=== PATIENT | female | born 1970 | race Caucasian/White ===

== ENCOUNTER 2024-01-20 06:19 | Emergency (ER) | payer SELFPAY ==
[2024-01-20 06:22] VITALS: BP 138/79; PULSE 70; RESP 16; TEMP 36.7; O2SAT 100; BMI 32.0
--- NOTE | 2024-01-20 06:25 | CT_ITS ---
STUDY: CT ABDOMEN AND PELVIS WITH CONTRAST - URINARY TRACT REASON FOR EXAM: Female, 54 years old. Epigastric pain RADIATION DOSAGE (If Supplied By Facility): CTDIvol = ( 15.64 ) mGy, DLP = ( 860.68 ) mGycm TECHNIQUE: IV 100mL Isovue-370 was administered. Transaxial images were obtained from the dome of the diaphragm to the symphysis pubis subsequent to intravenous contrast administration. Multiplanar coronal and sagittal images were reformatted. The protocol utilizes one or more of the following dose reduction techniques: automated exposure control, adjustment of mA and/or kV according to patient size,and/or use of iterative reconstruction technique. COMPARISON: No relevant prior comparison study available FINDINGS: The visualized lung bases are unremarkable. The visualized portions of the heart are within normal limits. Normal liver. There is non-visualization of the gallbladder, which may be secondary to either contraction or a prior cholecystectomy. Normal spleen. Normal pancreas. Normal bilateral adrenal glands. Normal visualized stomach. Normal small intestine. Normal colon. The appendix is visualized and appears normal. There is diffuse atherosclerotic calcification of the abdominal aorta, without a demonstrated aneurysm. No retroperitoneal adenopathy. Normal right kidney. 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 Normal urinary bladder. Normal abdominal wall. There are diffuse degenerative changes of the visualized thoracic and lumbar spine. CT/Abdomen/Pelvis W IV Cont ONLY IMPRESSION: No acute intra-abdominal process. Atherosclerosis. Degenerative changes of the visualized thoracic and lumbar spine. Electronically Signed: Ally Lynch MD at 8:05 EDT ,
--- NOTE | 2024-01-20 06:26 | EDS_ITS ---
HPI HPI - GI History of Present Illness Chief Complaint: Abd Pain Informant: patient and EMS Narrative Narrative: 54-year-old female states she was at work this morning and suddenly started having severe epigastric pain nausea. No syncope or chest discomfort, does not radiate or migrate, no pain in her back. Does not recall having had this before. Has a cardiac stent but felt much different than this. She has had prior cholecystectomy earlier this year due to stones. She drinks alcohol occasionally, she had some beer yesterday but did not overindulge. Normal bowel movement the last 1 was yesterday, normal urination. PFSH [facility] Medical History (Updated 01/20/24 @ 07:[address] Margarito Ledbetter MD) Heart attack Home Medications ?Medication ?Instructions ?Recorded ?Last Taken ?Type pantoprazole 40 mg tablet,delayed 40 mg PO DAILY #14 tabs 01/20/24 Unknown Rx release Allergy/AdvReac Type Severity Reaction Status Date / Time acetaminophen (From Percocet) Allergy Mild Shortness Verified 01/20/24 06:22 of breath hydromorphone (From Dilaudid) Allergy Mild Shortness Verified 01/20/24 06:22 of breath morphine Allergy Mild Shortness Verified 01/20/24 06:22 of breath oxycodone (From Percocet) Allergy Mild Shortness Verified 01/20/24 06:22 of breath shellfish derived Allergy Mild PT UNSURE Verified 01/20/24 06:44 OF REACTION Family History no significant family his Surgical History (Updated 01/20/24 @ 06:26 by Deangelo Linares) Hx of cholecystectomy Total knee replacement status ROS ROS ED Constitutional Constitutional ED: Denies chills or fever(s) Eyes Eyes: Denies change in vision or diplopia ENT ENT ED: Denies rhinorrhea or sore throat Cardiovascular Cardiovascular: Denies chest pain or palpitations Respiratory/Chest Respiratory/Chest: Denies cough or dyspnea Gastrointestinal Gastrointestinal: Reports abdominal pain and nausea; Denies diarrhea or vomiting Genitourinary Genitourinary ED: Denies dysuria or hematuria Musculoskeletal Musculoskeletal: Denies back pain or neck pain Integumentary Denies abscess or rash Neurologic Neurologic: Denies headache(s), paresthesias or weakness Psychiatric Psychiatric: Denies suicidal thoughts EXAM Physical Exam Const Vital Signs: 01/20/24 06:22 Temperature 98.0 F Temperature Source Oral Pulse Rate 70 Respiratory Rate 16 Blood Pressure 138/79 H Blood Pressure Mean 98 Pulse Ox 100 Oxygen Delivery Method Room Air Positive well nourished and well developed General Appearance ED: well developed and NAD HEENT Reports moist mucous membranes normocephalic and atraumatic Eyes PERRL and EOMs intact bilaterally Neck full ROM and supple Resp normal respiratory effort and clear to auscultation bilaterally Cardio regular rate, regular rhythm and no murmurs GI non-distended GI Narrative: Moderate-severe tenderness epigastrium, no other areas of abdominal tenderness. Some mild voluntary guarding, no rebound tenderness. No pulsatile mass palpab le. Normal inspection no Denzel sign. Auscultation: normoactive bowel sounds Palpation: soft Back/Spine no CVA tenderness General Back: other FROM Extremity normal to inspection Extremity Narrative: Equal 2+/4 dorsalis pedis and radial pulses. General Extremety ED: Negative for edema, pulses abnormal or tenderness General Extremity: Negative for edema or pulses abnormal Neuro oriented x3, CN's II-XII intact bilaterally and no sensory deficits noted Sensorium / Orientation: awake and alert Motor Exam: strength 5/5 throughout Psych thought process normal Skin no rashes or lesions noted and no wounds MDM MDM MDM Narrative Medical decision making narrative: Patient appears nontoxic but is if she is in pain. Her vital signs are normal. Differential includes dyspepsia, pancreatitis, biliary obstruction, AAA, peptic ulcer disease, perforated viscus, bowel obstruction. Labs and CT ordered, patient has declared allergy to morphine and Dilaudid so she will be given fentanyl for pain in addition to Zofran for nausea. Patient refused the fentanyl and asked for Toradol instead which will was given. In the meantime, labs were obtained and they were all within normal limits, as well as a CT with IV contrast. I reviewed the images and report which I agree with, which shows no AAA, radiographic signs of cholecystitis, free air or perforated viscus or obstruction; the CT is read as normal. After the Toradol, she states she is not sure if it helped or not, it is overall better but waxing and waning/coming and going. Therefore we tried a GI cocktail and a dose of oral pantoprazole. Just after getting that she is a little better. She is comfortable with going home as SD, she given a prescription for 2-week course of pantoprazole and advised to follow-up. Lab Data Attestation: I reviewed the patient's lab results. Labs: Laboratory Results - last 24 hr 01/20/24 06:36 WBC 10.3 RBC 4.72 Hgb 13.6 Hct 42.3 MCV 89.6 MCH 28.8 MCHC 32.2 RDW Std Deviation 41.6 RDW Coeff of [place] 12.6 Plt Count 223 MPV 10.6 Immature Gran % (Auto) 0.400 Neut % (Auto) 69.0 Lymph % (Auto) 21.0 Edgar % (Auto) 6.5 Eos % (Auto) 2.4 Baso % (Auto) 0.7 Absolute Neuts (auto) 7.1 Absolute Lymphs (auto) 2.16 Nucleated RBC % 0 Sodium 141 Potassium 4.3 Chloride 110 H Carbon Dioxide 26.0 Anion Gap 5 BUN 11 Creatinine 1.11 H Estim Creat Clear Calc 60.97 Est GFR (MDRD) Af Amer 66 Est GFR (MDRD) Non-Af 54 L BUN/Creatinine Ratio 9.9 L Glucose 93 Calcium 9.4 Total Bilirubin 0.60 AST 29 ALT 23 Alkaline Phosphatase 113 Total Protein 7.3 Albumin 3.6 Globulin 3.7 Albumin/Globulin Ratio 1.0 Lipase 22 Urine Color Yellow Urine Clarity Cloudy Urine pH 5.0 Ur Specific [place] 1.020 Urine Protein 15 H Urine Glucose (UA) Normal Urine Ketones Negative Urine Occult Blood 50 H Urine Nitrite Negative Urine Bilirubin Negative Urine Urobilinogen Normal Ur Leukocyte Esterase Negative Urine RBC 0-5 SEEN Urine WBC 0 SEEN Ur Squamous Epith Cells 25-50 SEEN Urine Bacteria 3+ Urine Mucus 0 SEEN Radiography Diagnostic Testing: Clinical Impression(s) from Imaging Studies Abdomen/Pelvis CT 01/20/24 06:25 IMPRESSION: No acute intra-abdominal process. Atherosclerosis. Degenerative changes of the visualized thoracic and lumbar spine. Electronically Signed: Ally Lynch MD at 8:05 EDT , Rhythm Strip Rhythm Strip: Sinus Rhythm Rate: 70 Ectopy: None Discharge Plan Triage Chief Complaint: Abd Pain ED Provider: Margarito Ledbetter Dx/Rx/DC Orders Clinical Impression: Acute epigastric pain Instructions: ED Epigastric Pain Uncertain Cause Prescriptions: New pantoprazole 40 mg tablet,delayed release (DR/EC) 40 mg PO DAILY Qty: 14 0RF Primary Care Provider: Radames Hooks MD Referrals: Radames Hooks MD [Other] - 3-5 Days if not improving Print Language: Togolese Disposition Disposition: Home, Self Care
[2024-01-20 06:41] LABS: Mucous, Urine 0 SEEN /hpf (<or=2+); White Blood Cells 0 SEEN /hpf (0-5)
[2024-01-20] MEDS: Ondansetron 4 MG/2 ML Vial IV (06:42)
[2024-01-20] MEDS: Ketorolac 30 MG/ML Syringe IV (06:42)
[2024-01-20 06:44] LABS: Absolute Lymphocyte Count 2.16 X10^3/uL (0.83-4.51); Absolute Neutrophil Count 7.1 X10^3/uL (2.0-7.7); Basophil# 0.07 X10^3/uL; Basophil% 0.7 % (0-1); Eosinophil# 0.25 X10^3/uL; Eosinophils% 2.4 % (0-5); Hematocrit 42.3 % (37-47); Hemoglobin 13.6 g/dL (12.0-15.0); Lymphocyte # 2.16 X10^3/ul (0.83-4.51); Mean Corp Hgb Conc 32.2 g/dL (32-36); Mean Corpuscular Hgb 28.8 pg (27.0-32.0); Mean Corpuscular Volume 89.6 fL (81-99); Mean Platelet Vol. 10.6 fl (6.2-12.0); Monocyte# 0.67 X10^3/uL; Monocyte% 6.5 % (0-10); NRBC Flagged by Analyzer 0 % (0-5); Neutrophil # 7.11 X10^3/uL (2.7-7.7); Platelet Count 223 K/mm3 (150-450); RBC Distribution Width CV 12.6 % (11.6-14.6); RBC Distribution Width SD 41.6 fl (35.1-43.9); Red Blood Count 4.72 M/mm3 (4.2-5.4); White Blood Count 10.3 K/mm3 (4.4-11.0)
[2024-01-20 06:45] LABS: Color, Urine Yellow (Yellow); Glucose, Dipstick Normal (Normal); Ketone-Dipstick Negative (Negative); Leukocyte Esterase-Dipstick Negative /ul (Negative); Nitrite-Dipstick Negative (Negative); Occult Blood-Urine 50 /ul (Negative); Protein-Dipstick 15 mg/dl (Negative); Urine Bilirubin Dipstick Negative (Negative); Urine Clarity Cloudy (Clear); Urine Urobilinogen Normal (Normal)
[2024-01-20 06:56] LABS: Bacteria 3+ /hpf (None Seen); Red Blood Cells-Urine 0-5 SEEN /hpf (0-5); Squamous Epithelial Cells - UA 25-50 SEEN /hpf (5-10)
[2024-01-20 07:05] LABS: AST(SGOT) 29 U/L (15-37); Alanine Aminotransfer ALT/SGPT 23 U/L (13-56); Albumin, Serum 3.6 g/dL (3.2-5.0); Alkaline Phosphatase 113 U/L (45-117); Anion Gap 5 (5-15); BUN 11 mg/dL (7-18); BUN/Creat Ratio 9.9 RATIO (10-20); Calcium,Total 9.4 mg/dL (8.5-10.1); Chloride 110 mmol/L (98-107); Creatinine, Serum 1.11 mg/dL (0.55-1.02); EST Glomerular Filtration Rate 54 mL/min (>60); Est Glom Filt Rate - Afr Amer 66 mL/min (>60); Estimated Creatinine Clearance 60.97 ml/min; Globulin 3.7 g/dL (2.2-4.2); Glucose 93 mg/dL (74-106); Lipase 22 U/L (13-75); Potassium 4.3 mmol/L (3.5-5.1); Protein, Total 7.3 g/dL (6.4-8.2); Sodium Level 141 mmol/L (136-145)
[2024-01-20] MEDS: Lidocaine 2% Viscous15 ML UDC 15 ML PO (08:05)
[2024-01-20] MEDS: Pantoprazole Sodium 40 MG Tablet PO (08:05)
[2024-01-20] MEDS: Mag Hydrox/Al Hydrox/Simeth 30 ML UDC PO (08:05)
[2024-01-20 08:28] VITALS: BP 125/74; PULSE 77; RESP 16; TEMP 36.4; O2SAT 99
== END 2024-01-20 08:29 | disposition home or self-care (01) ==
PROVIDERS: Emergency Provider Emergency Medicine; Visit Provider Emergency Medicine
DX: R10.13 Epigastric pain (principal); R11.0 Nausea; I25.2 Old myocardial infarction; Z88.5 Allergy status to narcotic agent; Z95.5 Presence of coronary angioplasty implant and graft; Z90.49 Acquired absence of other specified parts of digestive tract; Z96.659 Presence of unspecified artificial knee joint
CPT/HCPCS: 74177; 80053; 81001; 83690; 85025; 96374; 96375; 99284; Q9967; A4216; J2405